=== PATIENT | male | born 1980 | race Caucasian/White ===

== ENCOUNTER 2018-02-05 16:43 | Emergency (ER) | payer SELFPAY ==
[~2018-02-05] VITALS: Ht 177.8 cm; Wt 86.4 kg
[2018-02-05] MEDS ORDERED: KETOROLAC TROMETHAMINE 60 MG/2 ML VIAL IM ONE (19:00)
[2018-02-05] MEDS ORDERED: DIAZEPAM 5 MG TABLET PO ONE (19:00)
[2018-02-05] MEDS ORDERED: CYCLOBENZAPRINE HCL 10 MG TABLET PO ONE (19:15)
[2018-02-05 19:55] VITALS: BP 111/68
== END 2018-02-05 19:55 | disposition home or self-care (01) ==
LOC: EMS 16:43
DX: S39.012A Strain of muscle, fascia and tendon of lower back, initial encounter (principal); F17.210 Nicotine dependence, cigarettes, uncomplicated; X50.1XXA Overexertion from prolonged static or awkward postures, initial encounter; Y93.89 Activity, other specified; Y92.89 Other specified places as the place of occurrence of the external cause; Y99.8 Other external cause status
CPT/HCPCS: 96372; 99283; J1885

== ENCOUNTER 2021-05-30 13:31 | Emergency (ER) | payer OTHER ==
[~2021-05-30] VITALS: Ht 177.8 cm; Wt 95.5 kg
[2021-05-30 13:36] VITALS: BP 119/69
== END 2021-05-30 15:16 | disposition home or self-care (01) ==
LOC: EMS 13:34
DX: S39.012A Strain of muscle, fascia and tendon of lower back, initial encounter (principal); F17.210 Nicotine dependence, cigarettes, uncomplicated; X50.9XXA Other and unspecified overexertion or strenuous movements or postures, initial encounter; Y93.89 Activity, other specified; Y92.89 Other specified places as the place of occurrence of the external cause; Y99.8 Other external cause status
CPT/HCPCS: 99283

== ENCOUNTER 2023-02-19 13:39 | Emergency (ER) | payer OTHER ==
[~2023-02-19] VITALS: Ht 177.8 cm; Wt 104.5 kg
[2023-02-19 13:40] VITALS: TEMP 98.8
[2023-02-19] MEDS ORDERED: PERTUSS(ACELL),DIPH,TET VAC/PF 0.5 ML SYRINGE IM. ONE (15:15)
[2023-02-19 16:50] VITALS: BP 115/71; PULSE 69; RESP 17
== END 2023-02-19 16:30 | disposition home or self-care (01) ==
LOC: EMS 13:57
DX: S91.202A Unspecified open wound of left great toe with damage to nail, initial encounter (principal); F17.210 Nicotine dependence, cigarettes, uncomplicated; Y29.XXXA Contact with blunt object, undetermined intent, initial encounter; Y93.89 Activity, other specified; Y92.89 Other specified places as the place of occurrence of the external cause; Y99.8 Other external cause status
CPT/HCPCS: 90471; 90715; 99283

== ENCOUNTER → 2025-06-07 | Emergency (ER) | payer BC, OTHER ==
[~2025-06-07] VITALS: Ht 177.8 cm; Wt 110.0 kg
[2025-06-07 13:43] VITALS: BP 119/79; PULSE 89; RESP 18; TEMP 98.4; O2SAT 95
[2025-06-07 14:44] LABS: PLATELET COUNT (AUTO) 369 K/uL (150-450); RED BLOOD CELL COUNT(AUTO) 4.82 MIL/uL (4.50-5.90); RED CELL DISTRIBUTION WIDTH 13.6 % (11.5-14.5); WHITE BLOOD COUNT (AUTO) 8.7 K/uL (4.5-11.0)
[2025-06-07 14:45] LABS: CALCIUM, TOTAL 8.7 mg/dL (8.8-10.5); CREATININE 0.75 mg/dL (0.60-1.30); GLOMERULAR FILTR. RATE CALC > 60 mL/min (>60); GLUCOSE,RANDOM 122 mg/dL (70-110); SODIUM SERUM 139 mmol/L (136-145); UREA NITROGEN, BLOOD 11 mg/dL (7-18)
== END | disposition still patient (30) ==
LOC: EMS 13:47
DX: F32.A Depression, unspecified (principal); F17.210 Nicotine dependence, cigarettes, uncomplicated
CPT/HCPCS: 99285; 80048; 85025; 36415; G0480